=== PATIENT | male | born 1935 | race Two or more races ===

== ENCOUNTER 2016-09-03 10:05 | Inpatient (IN) | payer MEDICARE, OTHER ==
[2016-09-03] VITALS (8 sets, daily range): BP systolic 91–107; BP diastolic 50–69; PULSE 87–105; RESP 15–18; O2SAT 87–97
[~2016-09-03] VITALS: Ht 172.7 cm; Wt 76.9 kg
[~2016-09-03 10:05] MED LIST: APIX5TAB PO; ASPI81TA40 PO; DEXL60CA3 PO; FINA5TAB9 PO; FUR20 PO; GLIM4TAB PO; HYDR500C2 PO; METO25TA3 PO; MULT1CAP33 PO; TAM4 PO; [UNRECOGNIZED DRUG - CODE] PO; [UNRECOGNIZED DRUG - SUPPLY]
--- NOTE | 2016-09-03 11:10 | ED.REPORT ---
HPI-General Illness Date of Service Sep 03, 2016 ED Provider: Jovanny Tan MD 80 year old male with a history of polycythemia, thrombocytopenia, CHF, atrial fibrillation, COPD, diabetes, and HTN presents to the ER via EMS complaining of bilateral lower extremity swelling, worsening today. He states that his PCP ( Dr. Valentine) referred him to the ER for admission to the hospital. Associated symptoms include productive cough with yellow sputum, and chronic SOB. Patient denies fever and chills. EMS reports that patient is cared for by a home health nurse who reports low systolic blood pressure today. He is on home O2 with goal saturation 85-92% on 5L nasal cannula, and baseline systolic blood pressure in the 90's. Nursing Notes Stated Complaint: SOB Chief Complaint: General Complaint Nursing Notes Reviewed: Yes Allergies: Coded Allergies: latex (Verified Allergy, Intermediate, 09/03/16) Barbiturates (Verified Allergy, Mild, 09/03/16) Sulfa (Sulfonamide Antibiotics) (Verified Allergy, Mild, 09/03/16) amiodarone (Unverified Allergy, Unknown, 09/03/16) amoxicillin (Unverified Allergy, Unknown, 09/03/16) iodine (Unverified Allergy, Unknown, 09/03/16) Scheduled Anagrelide (Anagrelide) 0.5 Mg Capsule 0.5 MG PO DAILY Apixaban (Eliquis) 5 Mg Tablet 5 MG PO DAILY Dexlansoprazole ER (Dexilant) 60 Mg Capsule 60 MG PO QAM Digoxin (Digitek) 125 Mcg Tablet 62.5 MCG PO DAILY Finasteride (Finasteride) 5 Mg Tablet 5 MG PO DAILY Furosemide (Furosemide) 20 Mg Tab 20 MG PO BIDBL Glimepiride (Glimepiride) 4 Mg Tablet 4 MG PO BID Metoprolol Succinate ER (Toprol XL) 25 Mg Tablet 12.5 MG PO DAILY Tamsulosin ER (Tamsulosin ER) 0.4 Mg Cap.er.24h 0.4 MG PO HS Scheduled PRN Aspirin (Aspirin) 81 Mg Tablet 81 MG PO TID PRN PRN For Pain Beclomethasone Dipropionate (Qnasl) 8.7 Gm Hfa.aer.ad 2 SPR NASAL DAILY PRN PRN allergies General Time Seen by MD: 10:53 Chief Complaint Other (Bilateral Lower Extremity Swelling) Hx Obtained From: Patient Arrived By: Ambulance Sudden in Onset?: No Onset Occurred: Just prior to arrival Symptom Duration: Since onset Associated with: Reports: Cough, Shortness of breath, Denies: Chest pain, Fever Pertinent Negative: Pt denies other symptoms Context Related History: Reports COPD, Reports Diabetes mellitus Recent Healthcare: Recent doctor visit Similar Sx Previous: Yes Past Medical History Past Medical History Thrombocytopenia Reports: COPD, Cancer (Polycythemia), Congestive heart failure, Diabetes mellitus, Hypertension Reports: Atrial fibrillation, GI bleed Past Surgical History Hernia repair Reports: Cataract surgery (bilateral) Smoking History Unknown if Ever Smoker Social History Alcohol Use: "Social" (occasional) Other Social History: Good social support Review of Systems Full Review of Systems Constitutional: Denies: Chills, Fever Respiratory: Reports: Prod cough, yellow, Shortness of breath Cardiovascular: Denies: Chest pain GI: Denies: Abdominal pain, Diarrhea, Nausea, Vomiting Musculoskeletal: Reports: Extremity pain, Extremity swelling (Lower, bilateral) Complete sys rev & neg: except as marked. Physical Exam Vital Signs Vital Signs Date Time Temp Pulse Resp B/P Pulse Ox O2 Delivery O2 Flow Rate FiO2 09/03/16 13:44 101 15 97/55 89 Nasal Cannula 5 09/03/16 13:41 101 15 97/55 89 Nasal Cannula 5 09/03/16 12:11 99 15 91 Nasal Cannula 5 09/03/16 10:53 36.7 102 15 107/55 90 Nasal Cannula 5 Initial VS: Reviewed Head / Eyes: Atraumatic, Normocephalic Neck: Supple, Non-tender, Full range of motion Abdomen / GI: Soft, Non-tender, No guarding, No rebound, No distention Skin: Warm, Dry, No cyanosis Neurologic: Alert, Oriented, Nonfocal Psychiatric: Mood/affect normal, Behavior normal, Normal thought content General/Constitutional: Awake, Alert, Well developed, Well nourished Respiratory / Chest: No chest tenderness, No chest wall deformity Bibasilar crackles. Cardiovascular: Heart rate NL, Regular rhythm, Heart sounds NL, Cap refill not delayed, Peripheral circulation NL Lower Ext Edema: Positive: Bilateral 2+, Pitting Upper Extremities Upper Extremity / MS: Inspection NL, No swelling, Non-tender, No erythema, No deformity, Neurologic intact, Vascular intact, No clubbing/cyanosis Interpretation & Diagnostics Lab Results Interpretation Result Diagram: 09/03/16 1140 09/03/16 1140 Test 09/03/16 11:40 09/03/16 12:34 White Blood Count 13.1th/mm3 (3.8-10.1) Red Blood Count 4.91mil/mm3 (4.40-5.80) Hemoglobin 10.7g/dL (13.8-17.2) Hematocrit 36.4% (41.0-50.0) Mean Corpuscular Volume 74.1fL (81-100) Mean Corpuscular Hemoglobin 21.8pg (27.0-35.0) Mean Corpuscular Hemoglobin Concent 29.4% (32.0-37.0) Red Cell Distribution Width 22.8% (12.3-15.4) Platelet Count 594bil/L (150-400) Neutrophils (%) (Auto) 66.6% (40-74) Lymphocytes (%) (Auto) 14.4% (14-46) Monocytes (%) (Auto) 9.8% (4-12) Eosinophils (%) (Auto) 8.1% (0-5) Basophils (%) (Auto) 0.8% (0-3) Prothrombin Time 16.0sec (8.1-12.5) Prothromb Time International Ratio 1.48ratio Sodium Level 139mEq/L (134-144) Potassium Level 3.8mEq/L (3.5-5.2) Chloride Level 102mEq/L (97-108) Carbon Dioxide Level 22mmol/L (18-29) Blood Urea Nitrogen 30mg/dL (8-27) Creatinine 1.10mg/dL (0.76-1.27) Estimat Glomerular Filtration Rate 68mL/min (>59) Glucose Level 112mg/dL (60-99) Calcium Level 9.0mg/dL (8.5-10.1) Magnesium Level 2.0mg/dL (1.6-2.6) Total Bilirubin 2.0mg/dL (0.0-1.2) Aspartate Amino Transf (AST/SGOT) 23U/L (0-50) Alanine Aminotransferase (ALT/SGPT) 15U/L (0-44) Alkaline Phosphatase 82U/L (25-160) Troponin T 0.010ug/L (0.0-0.011) Pro-B-Type Natriuretic Peptide 5987pg/mL (0-486) Total Protein 6.9g/dL (6.4-8.4) Albumin 3.5g/dL (3.4-5.0) Urine Color Straw (YELLOW) Urine Appearance Hazy (CLEAR,HAZY) Urine pH 5.5 (5.0-8.0) Urine Specific [place] 1.020 (1.003-1.035) Urine Protein Tracemg/dL (NEG,TRACE) Urine Glucose (UA) Negativemg/dL (NEGATIVE) Urine Ketones Negativemg/dL (NEGATIVE) Urine Occult Blood Moderate (NEGATIVE) Urine Nitrite Negative (NEGATIVE) Urine Bilirubin Negative (NEGATIVE) Urine Urobilinogen Normalmg/dL (NORMAL) Urine Leukocyte Esterase Large (NEGATIVE) Urine RBC 0-2/hpf (0-2) Urine WBC >50/hpf (0-5) Urine Epithelial Cells Occasional/hpf (NONE-MOD) Urine Crystals None seen (NONE SEEN) Urine Bacteria Moderate/hpf (NONE-FEW) Urine Hyaline Casts Occasional/lpf (NONE) Urine Granular Casts None seen (NONE SEEN) Urine Waxy Casts None seen (NONE SEEN) Urine Red Blood Cell Casts None seen (NONE SEEN) Urine White Blood Cell Casts None seen (NONE SEEN) Urine Mucus None seen (None Seen) Urine Trichomonas None seen (NONE SEEN) Urine Yeast Moderate (NONE SEEN) Urinalysis Comment None Urine Culture Reflexed Indicated ECG Interpretation ECG Interpretation: Atrial fibrillation, rate [address] T changes Time: 12:58 Interpreted by: ED physician X-Ray Chest Interpretation Chest Xray Interpretation: IMPRESSION: Interstitial prominence suspicious for chronic interstitial lung disease, atypical pneumonia or pulmonary edema. 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 He has been attempting to be diuresed as an outpatient reportedly with lasix 5mg po bid (though patient poor historian and unable to verify) and has had persistently borderline blood pressures which he has had for a long period time. His primary doctor did not feel comfortable diuresing him further as an outpatient. He has worsening lower extremity edema. He is on 5 L oxygen which is his baseline. He has 2+ bilateral lower extremity pitting edema. His BNP is significantly elevated. Discussed with hospitalist and we will admit for IV diuresis on telemetry. Source of Hx: Old records Time of Eval: 12:20 Re-Evaluation/Progress Note: Discussed plan to discharge pending lab results. Patient is amenable to the plan. Time of Eval: 13:13 Re-Evaluation/Progress Note: Discussed lab results and plan to admit. Patient is amenable to the plan. All other questions addressed. Consultation : Referral / Consult Name: Asif Arroyo Consulted With: Hospitalist Call Returned at: 13:17 Director Of Nurses Registry: Agrees with eval, Agrees with plan, Accepts admit Counseled Regarding: Diagnosis, Lab results, Need for admission Discharge & Departure Primary Impression: CHF exacerbation Disposition: ADMITTED TO HOSPITAL Discharge Condition All VS Reviewed: Yes Condition: Stable Referrals: Wenceslao Valentine MD (PCP) Aleksey Attestation Portions of this note were transcribed by Geovany Cooper. I, Dr. Tan, personally performed the history, physical exam and medical decision-making; I reviewed and confirmed the accuracy of the information in the transcribed note. Signed by: Aleksey Siddiqui, 09/03/2016 and 13:31 copies to: Wenceslao Valentine MD, Ben M MD Sep 03, 2016 11:10 GEOVANY COOPER Sep 03, 2016 11:59
[2016-09-03 11:49] LABS: BASOPHILS % (AUTO) 0.8 % (0-3); EOSINOPHILS % (AUTO) 8.1 % (0-5); MONOCYTES % (AUTO) 9.8 % (4-12); Mean Corpuscular Hemoglobin 21.8 pg (27.0-35.0); Mean Corpuscular Volume 74.1 fL (81-100); NEUTROPHILS % (AUTO) 66.6 % (40-74); Platelet Count 594 bil/L (150-400)
--- NOTE | 2016-09-03 12:00 | NUR ---
In OR Took over care @ 1130 AM. Pt is in OR for Sx at this time. Report received. Addendum: 09/03/16 at 1734 by RISA WRIGHT RN Wrong pt!
[2016-09-03 12:10] LABS: INR 1.48 ratio
[2016-09-03 12:46] LABS: APPEARANCE,URINE HAZY (CLEAR,HAZY); COLOR,URINE STRAW (YELLOW); OCCULT BLOOD,URINE MODERATE (NEGATIVE); PH,URINE 5.5 (5.0-8.0); UROBILINOGEN,URINE NORMAL (NORMAL)
[2016-09-03 12:51] LABS: YEAST,URINE MODERATE (NONE SEEN)
[2016-09-03] MEDS ORDERED: Furosemide 10 mg/mL 4 mL Inj IVPUSH ONE (13:15)
--- NOTE | 2016-09-03 13:22 | DRSVH ---
PROCEDURE: X-RAY CHEST ONE VIEW, PORTABLE ([id number]) INDICATIONS: dyspnea TECHNIQUE: One view of the chest was acquired. COMPARISON: [facility], CR, CHEST 2VW, 10/16/2011, 15:16. [facility], CR, EST 2VW, 04/26/2013, 16:02. FINDINGS: Surgical changes and devices: None. Lungs and pleura: No pleural effusions or pneumothorax. Interstitial prominence is noted which is no nspecific, but could be related to chronic interstitial lung disease, atypical pneumonia or pulmonary edema. Mediastinum: Mediastinal contours appear normal. Heart size is normal. Bones and chest wall: No suspicious bony lesions. Overlying soft tissues appear unremarkable. IMPRESSION: Interstitial prominence suspicious for chronic interstitial lung disease, atypical pneumo tc or pulmonary edema. Dictated by: Swetha Stein MD, PhD on 09/03/2016 at 13:19 Approved by: Swetha Stein MD, PhD on 09/03/2016 at 13:21
[2016-09-03] MEDS ORDERED: Alum-Mag Hydrox-Simeth 30 mL Suspension PO PRN (13:35)
[2016-09-03] MEDS ORDERED: Ondansetron 2 mg/mL 2 mL Inj IVPUSH PRN (13:35)
[2016-09-03] MEDS ORDERED: ANAG0.5C2 PO (13:51)
[2016-09-03] MEDS ORDERED: TAMS0.4C29 PO (13:51)
[2016-09-03] MEDS ORDERED: DEXL60CA5 PO (13:51)
[2016-09-03] MEDS ORDERED: BECL8.7H NASAL (13:51)
[2016-09-03] MEDS ORDERED: GLIM4TAB2 PO (13:51)
[2016-09-03] MEDS ORDERED: ASPI-973 PO (13:51)
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
--- NOTE | 2016-09-03 15:00 | NUR ---
Admit Pt admitted from ER r/t CHF exacerbation, SOB, and Bilat LE Edema increasing. Pt comes via gurney but ambulates independently with steady gait to bed. 5L NC is baseline for pt at home with goal of SPO2 to be 85-92%. Using urinal at bedside. Tele placed on pt. A&OX4 word searches at times. at bedside. Bilateral LE edema pitting with reddened sores on lower legs. PU on both buttock areas small. Per pt these were from sitting in his chair for weeks at a time previously. PU Protocol initiated. Lungs throughout crackles and some light wheezing. Allergy hydroelectric production manager name band. Call light in reach, bed in low. Care continues
[2016-09-03] MEDS ORDERED: Fluticasone 0.05% 15 Spray/2 Gm 16 Gm Nasal Spray NASAL PRN (15:40)
[2016-09-03 16:34] LABS: INR 1.42 ratio
[2016-09-03] MEDS: MeTOProlol XL 25 mg ER24 Tablet PO SCH (16:39)
[2016-09-03] MEDS: Pantoprazole 40 mg ER24 Tablet PO SCH (16:39)
[2016-09-03] MEDS: Sodium Chloride LOK Flush 10 mL Syringe IVFLUSH SCH (16:42)
--- NOTE | 2016-09-03 18:58 | DRSVH ---
PROCEDURE: US VENOUS LEG DUPLEX BILATERAL INDICATIONS: 80 year-old male with shortness of breath and leg swelling. TECHNIQUE: Real-time imaging, as well as color and pulse Doppler interrogation, were performed of the deep veins of both legs from the inguinal ligament to the popliteal fossa. COMPARISON: None. FINDINGS: The deep veins are normally compressible, and free of intraluminal thrombus. Color and pu lse Doppler demonstrate normal phasic intravascular flow. There is normal augmentation response to d istal compression maneuver. There is significant bilateral lower leg subcutaneous edema. IMPRESSION: No sonographic evidence for lower extremity deep venous thrombosis. Dictated by: Diego Malone M.D. on 09/03/2016 at 18:56 Approved by: Diego Malone M.D. on 09/03/2016 at 18:57
[2016-09-04] VITALS (7 sets, daily range): BP systolic 91–110; BP diastolic 50–71; PULSE 71–105; RESP 18–22; O2SAT 86–95
[2016-09-04] MEDS: Sodium Chloride LOK Flush 10 mL Syringe IVFLUSH SCH ×3 (00:18→16:57)
[2016-09-04] MEDS ORDERED: diphenhydrAMINE 25 mg Capsule PO ONE ×2 (00:30→05:25)
--- NOTE | 2016-09-04 01:42 | NUR ---
Insomnia Pt requested sleep aid for insomnia. Benedryl prescribed with good results, will continue to monitor.
[2016-09-04] MEDS: Pantoprazole 40 mg ER24 Tablet PO SCH (06:18)
[2016-09-04 06:40] LABS: BASOPHILS % (AUTO) 1.1 % (0-3); EOSINOPHILS % (AUTO) 8.2 % (0-5); MONOCYTES % (AUTO) 10.8 % (4-12); Mean Corpuscular Hemoglobin 22.4 pg (27.0-35.0); Mean Corpuscular Volume 73.7 fL (81-100); NEUTROPHILS % (AUTO) 62.9 % (40-74); Platelet Count 576 bil/L (150-400)
[2016-09-04] MEDS: MeTOProlol XL 25 mg ER24 Tablet PO SCH (07:58)
[2016-09-04] MEDS: ANAGRELIDE 0.5 MG PO SCH (08:02)
[2016-09-04] MEDS ORDERED: Furosemide 10 mg/mL 4 mL Inj IVPUSH ONE (10:15)
--- NOTE | 2016-09-04 10:19 | PCM.PNMED ---
Subjective Date of Service Sep 04, 2016 Subjective Had some difficulties sleeping last night, but was able to finally sleep with Benadryl. This morning he was seen in his room. He denied any current CP and reports that his SOB has improved. He is still urinating frequently. Exam Vital Signs Vital Sign - Last Date Time Temp Pulse Resp B/P Pulse Ox O2 Delivery O2 Flow Rate FiO2 09/04/16 08:08 Supplement Oxygen 09/04/16 05:21 36.6 92 18 95/64 94 4.00 110/67 108/71 Intake and Output 09/03/16 09/03/16 09/04/16 Cumulative From/Thru 15:00 23:00 07:00 09/03/16 10:53 - 09/04/16 06:41 Intake Total 400 ml 400 ml Output Total 400 ml 500 ml 900 ml Balance -400 ml -100 ml -500 ml Intake Oral 400 ml 400 ml Output Urine Total 400 ml 500 ml 900 ml # Voids 2 2 Exam Gen.: Well-developed elderly male who appears in mild respiratory distress, cooperative and answers questions appropriately CV: Irregularly irregular with soft systolic murmur, peripheral pulses intact Respiratory: Coarse breath sounds, mild bibasilar rales, no wheezing or rhonchi noted, mild respiratory distress while on 4 L NC. Abdomen: Soft, nontender, nondistended, mildly obese, normoactive bowel sounds MSK: Muscle strength grossly intact and equal, no joint erythema or swelling. Extremities: 1-2+ bilateral firm pitting edema up to both knees, there is chronic venous stasis changes, decreased DP and PT pulses bilaterally :No nguyen catheter Neuro: Alert and oriented 3, slow but normal gait Psych: Appropriate mood and affect IVs and Medications Medications Reviewed: Medications were reviewed in detail Lab and Diagnostics Result Diagram: 09/04/1661409/04/16614 X-Rays, CTs and MRIs cxr portable IMPRESSION: Interstitial prominence suspicious for chronic interstitial lung disease, atypical pneumonia or pulmonary edema. 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 Patient will be admitted for gentle diuresis and evaluation of his bilateral feet pain and swelling and SOB. #Pulmonary fibrosis on home oxygen, POA Patient was reported to have been more short of breath today and was saturating in the mid 80s. He is now saturating in the low 90s on 5 Liters, which is his baseline. Lung exam fairly benign today. Will continue to keep saturations between 88-92% on oxygen. Will continue home Qvar inhaler #Possible Acute exacerbation of Congestive Heart Failure, POA Patients increase swelling and SOB may be due to inadequate diuresis or from inadequate output since removal of his indwelling nguyen catheter. Although its possible that his foot pain may be a separate issue and is due to vascular insufficiency. He did receive 40mg of IV Lasix in the ED. Will continue to monitor I/Os closely and daily weights. With the leg swelling and pain, will get Doppler U/S to r/o DVTs, although presentation makes it less likely. Will re-evaluate patient's edema and symptoms tomorrow morning before continuing diuresis. He is on 20mg of PO Lasix BID at home. He is also on Digoxin, but reports he has only been taking half of his usual dosage, because that is all he can handle. Will check a Digoxin level. Will obtain an Echo for evaluation of heart health PT/OT for discharge recs Digoxin level low, will encourage patient to take the full dosage and not half dose. Also will encourage Compression stockings #Possible UTI, POA UA positive for Leuks, WBC, and blood. Could be a dirty catch, patient asymptomatic except frequency, will await cultures or symptoms. #Chronic atrial fibrillation, POA Patient is currently on Eliquis, will continue Rate well controlled. #NIDDM2, POA Held home Glimepiride, will initiate low dose Correctional Scale #Chronic Hypotension, POA Patient reports his baseline systolic is in the 90s. Uncertain of reason, but he reports it runs in his family. Mildly orthostatic from supine to sitting only #Chronic BPH, POA Will cautiously continue his home Finasteride and Flomax since they are fairly low doses If worsening Hypotension, consider stopping these medications if patient is able to urinate without difficulties #Polycythemia vera, POA Will continue his Agrylin Tylenol prn pain Zofran prn nausea Bowel regimen prn constipation Dispo: Likely discharge tomorrow if medically stable and diuresing well. Pain Evaluation: Adequate Pain Control VTE Prophylaxis: COLLETTE Flores, Other (Eliquis) VTE Mechanical Devices: Intermittant Pneumatic CD Resuscitation Status: CPR: Attempt Resuscitation Attending Statement The patient was seen and examined together with Resident / House-staff on and I agree with the history, exam and plan as outlined in the note above. Felipe Duran DO Sep 04, 2016 09:49 Asif Arroyo Sep 05, 2016 17:05
--- NOTE | 2016-09-04 11:30 | NUR ---
Pressure ulcer protocol received, pt seen at bedside. 80 yo male presents with a small stage 2 pressure injury at his right buttock (POA). Measures 0.5 cm x 0.5 cm x 0.2 cm, no dressing noted, no drainage noted on bedsheets. Recommend calmoseptine application daily, encourage nutrition.
--- NOTE | 2016-09-04 13:30 | DRSVH ---
[facility] [address] [place] [address] Echocardiogram Report Name: JASMIN KRISHNAN BStudy Date: 09/04/2016 Height: 6 8 in Hospital Exam Location: [facility] Weight: 1 69 lb Gender: Male BSA: 1.9 m2 : 1935 Age: 80 yrs BP: 108/7 1 mmHg Reason For Study: HEART FAILURE Ordering Physician: [facility]PITALIST [facility] Performed By: Brenna Benitez Referring Physician: Dr. Wenceslao Valentine Interpretation Summary The left ventricle is normal in size. Left ventricular systolic function is mildly reduced. The ejection fraction is estimated to be 45-50%. LVEF has not changed significantly since prior study. Flattened septum is consistent with RV pressure/volume overload. The right ventricle is severely dilated which has increased markedly since prior study. There is no mass or thrombus in the right ventricle. Right ventricular systolic function is moderate to severely reduced. Right ventricular systolic function has decreased markedly since previous exam. The right ventricular systolic pressure is estimated at 80 mmHg assuming a right atrial pressure of 15 mm Hg. Compared to the prior echo exam, there has been a significant increase in the severity of pulmonary hypertension. The left atrium is mildly dilated. The right atrium is severely dilated. There is moderate mitral regurgitation. There is moderate to severe tricuspid regurgitation. Both TR and MR have increased in severity. There is a moderate left-sided pleural effusion. Procedure: A two-dimensional transthoracic echocardiogram with color flow and Doppler was performed. The study quality was technically adequate. Comparison is made with the echocardiogram of 02/10/2015. The patient was in atrial fibrillation with heart rates between 77-113 bpm during the exam. Left Ventricle: The left ventricle is normal in size. Left ventricular wall thickness is normal. Left ventricular systolic function is mildly reduced. The ejection fraction is estimated to be 45-50%. Flattened septum is consistent with RV pressure/volume overload. There is borderline global hypokinesis of the left ventricle. Diastolic function could not be accurately assessed due to atrial fibrillation. Right Ventricle: The right ventricle is severely dilated. There is no mass or thrombus in the right ventricle. Right ventricular systolic function is moderate to severely reduced. Right ventricular systolic function has decreased since previous exam. Atria: The left atrium is mildly dilated. The right atrium is severely dilated. There is no Doppler evidence for an interatrial shunt. Mitral Valve: There is a flat closure plane of the the mitral valve leaflets. The mitral valve is normal in structure and function. There is moderate mitral regurgitation. Aortic Valve: The aortic valve is trileaflet. The aortic valve opens well. There is trace aortic regurgitation. Tricuspid Valve: The tricuspid valve leaflets are thin and pliable. The tricuspid annulus is dilated. There is moderate to severe tricuspid regurgitation. The right ventricular systolic pressure is estimated at 80 mmHg assuming a right atrial pressure of 15 mm Hg. Compared to the prior echo exam, there has been an increase in the severity of pulmonary hypertension. Systolic flow reversal noted in hepatic veins. Pulmonic Valve: The pulmonic valve leaflets are thin and pliable; valve motion is normal. There is mild pulmonic regurgitation. Great Vessels: The aortic root is normal size. The ascending aorta is at the upper limits of normal in size. The pulmonary artery is normal size. The IVC is dilated (diameter is greater than 2.1 cm) and it collapses less than 50% with a sniff. This suggests a high right atrial pressure of 15 mm Hg. Pericardium/ Pleura There is no pericardial effusion. There is a moderate left-sided pleural effusion. MMode/2D Measurements & Calculations LVIDd: 4.6 cm RA long axis LVOT diam LVIDs: 2.7 cm LA A2 area: 21.7 cm FS: 41.3 % LA A4 area: 24.1 cm RA area Ao root diam EPSS: 0.32 cm LA length (vol): 6.0 cm IVSd: 0.80 cm LA vol: 73.4 ml : 29.8 cm Aortic Jxn LVPWd: 0.97 cm LA vol index RA vol : 110.ml asc Aorta RA Diam: 3.4 cm IVC diam: 2.5 cm : 57.8 mm2 LV stallings. diameter/BSA LV sys. diameter/BSA RVD1 (basal) TAPSE: 0.70 cm (cm/m^2): 2.4 (cm/m^2): 1.4 Doppler Measurements & Calculations Ao V2 max: 90.0 cm/sec MV E max mingo Med Peak E' Mingo TR max mingo Ao max P.2 mmHg : 75.2 cm/sec : 400.4 cm/sec Ao mean P.9 mmHg E/E' med: 8.8 TR max PG LVOT Max Mingo Lat Peak E' Mingo : 64.5 mmHg : 48.9 cm/sec PA V2 max PRIYA(I,D): 1.8 cm E/E' lat: 4.8 : 70.4 cm/sec sev ratio: 0.52 E/e' average: 6.8 PA mean PG : 0.90 mmHg PA Accel Time : 0.06 sec MV dec time: 0.12 sec Ao V2 mean LV V1 max PG PA V2 mean : 66.1 cm/sec : 44.3 cm/sec Ao V2 VTI LV V1 VTI: 7.7 cm PRIYA(V,D): 1.9 cm2 PRIYA indexed to BSA (cm^2/m^2): 0.96 Reading Physician:PM
--- NOTE | 2016-09-04 15:51 | NUR ---
Social Work-initial assessment/readiness for discharge: Data:See initial assessment. Pt is a 80 y/o male who was admitted on 09/03/16 for CHF exacerbation per H&P. Pt's insurance is [employer] and PCP is Wenceslao Valentine MD. EMR Reviewed. Pt's readmission score is 3-high risk. SW met with pt at bedside to discuss discharge planning, SW role explained. Pt is alert and oriented x3. Pt resides at home with his where he remains independent with ADLS. Pt does not drive and does uses a fww at baseline. Pt is currently open with [facility] and has been to [facility] in the past. Pt has no director long term care care insurance or VA benefits. Pt states he has not completed DPOA/ advanced directive paperwork, SW provided him with the paperwork. Pt plans to return home with resume HH services. SW spoke with John Malcolm at [facility] and provided him with access. Pt anticipates his to provide transport home at discharge. SW provided phone number and plan on white board in room. SW will continue to follow. Assessment:Pt who would benefit from resume HH. Plan:Pt to discharge home when medically stable via POV. Resume HH orders will be needed through [facility] for RN and PT. JOLANTA will continue to follow. JOSE ROBERTO Benitez Addendum: 09/04/16 at 1606 by CHANTELL TREVINO SS Amended: Links added.
[2016-09-04] MEDS ORDERED: Heparin 5,000 Unit/mL Inj IVPUSH ONE (15:55)
[2016-09-04] MEDS ORDERED: Heparin 25K Unit/500mL 0.45 NS 25,000 UNIT in IV Premix 1 EACH IV SCH (15:55)
[2016-09-04] MEDS ORDERED: Heparin 5,000 Unit/mL Inj IVPUSH PRN (15:55)
[2016-09-04] MEDS ORDERED: diphenhydrAMINE 50 mg Capsule PO ONE (16:00)
--- NOTE | 2016-09-04 16:55 | NUR ---
NUTRITION ASSESSMENT: ASSESS: 80 YO male admitted for shortness of breath and CHF exacerbation. Pt eating 100% x 1 meal reported. PMHx: Polycythemic, erythromelalgia, CHF, a-fib on Eliquis, COPD, Pulmonary fibrosis, DM type 2, orthostatic hypotension, BPH, CAD s/p stent. LABS: Reviewed. BUN 30, A1C 7.0, Alb 3.4, PAB 13 MEDS: Reviewed. GI: No BM reported. SKIN: Stage II on R buttock. CURRENT WT: 76.9 kg. DIET: Heart Healthy, Diabetic. PO 100% x 1 meal reported. EST. NEEDS (WOUNDS): 0317-0604 kcals (30-35 kcals/kg BW), 95-115 g protein (1.2-1.5 g/kg BW) NUTRITION DIAGNOSIS: 1.) Increased nutrient needs related to increased demand for nutrients for wound healing as evidenced by stage II pressure ulcer on buttock. NUTRITION INTERVENTION: 1.) Will add glucerna at lunch and dinner tray to help meet increased needs for wound healing. MONITOR / EVAL: PO intake, labs, wounds, nutritional status. Follow per moderate nutritional risk guidelines.
--- NOTE | 2016-09-04 17:31 | NUR ---
Heparin drip: Heparin drip was started 1700 at 28ml hr/1400u per cardiac protocol. Also 6150u IV bolus was given per MD order at Start of heparin drip. Patients next PTT draw will be at 2300.
--- NOTE | 2016-09-04 17:34 | NUR ---
Urine: Post residual bladder scan today was done and showed 114ml in patients bladder after he urinated.
[2016-09-04] MEDS: predniSONE 20 mg Tablet PO SCH (19:03)
[2016-09-04] MEDS: diphenhydrAMINE 25 mg Capsule PO PRN (20:47)
[2016-09-05] MEDS: Sodium Chloride LOK Flush 10 mL Syringe IVFLUSH SCH ×3 (00:04→17:37)
--- NOTE | 2016-09-05 00:21 | NUR ---
Pt activity Received report from Harmeet Finch at 2330, assumed care of pt.
[2016-09-05] MEDS: predniSONE 20 mg Tablet PO SCH ×2 (01:40→07:04)
--- NOTE | 2016-09-05 05:14 | NUR ---
PTT Pt's PTT lab was drawn at 0030, lab value back 2 hrs later. Spoke with Dr and with new PTT at 46.6, started heparin at 14units/kg/hr. Will continue to monitor, next PTT draw at 0630.
[2016-09-05 05:19] VITALS: BP 113/67; PULSE 97; RESP 20; O2SAT 93
[2016-09-05] MEDS: Pantoprazole 40 mg ER24 Tablet PO SCH (06:02)
[2016-09-05 06:58] LABS: BASOPHILS % (AUTO) 0.2 % (0-3); EOSINOPHILS % (AUTO) 0.1 % (0-5); MONOCYTES % (AUTO) 1.1 % (4-12); Mean Corpuscular Hemoglobin 22.2 pg (27.0-35.0); Mean Corpuscular Volume 72.9 fL (81-100); Platelet Count 591 bil/L (150-400)
[2016-09-05] MEDS: diphenhydrAMINE 25 mg Capsule PO PRN (07:04)
[2016-09-05] MEDS ORDERED: diphenhydrAMINE 25 mg Capsule PO ONE (07:40)
--- NOTE | 2016-09-05 08:04 | DRSVH ---
PROCEDURE: X-RAY CHEST, TWO VIEWS ([id number]) INDICATIONS: ?PE TECHNIQUE: 2 views of the chest were acquired. COMPARISON: [facility], CR, XR CHEST 1VW (PORTABLE), 09/03/2016, 12:24. [facility], CR, CHEST 2VW, 04/26/2013, 16:02. FINDINGS: Surgical changes and devices: None. Lungs and pleura: No pleural effusions or pneumothorax. Interstitial prominence is noted which is no nspecific, but could be related to chronic interstitial lung disease, atypical pneumonia or pulmonary edema. Mediastinum: Mediastinal contours appear normal. Heart size is normal. Bones and chest wall: No suspicious bony lesions. Overlying soft tissues appear unremarkable. IMPRESSION: Interstitial opacities redemonstrated at suspicious for chronic interstitial lung disease , although atypical pneumonia and/or pulmonary edema cannot be excluded. Correlate clinically. Dictated by: Dwayne LUCERO Interpreted: Anna Ray MD on 09/05/2016 at 8:03 Transcribed by: BLAKE on 09/05/2016 at 8:04 Approved by: Anna Ray M.D. on 09/05/2016 at 21:18
--- NOTE | 2016-09-05 09:53 | DRSVH ---
PROCEDURE: CT ANGIO CHEST PULMONARY EMBOLISM ([id number]) INDICATIONS: RV strain on ECHO TECHNIQUE: After the administration of intravenous contrast, 2 mm thick sections acquired from the pulmonary api duncan to the posterior costophrenic angles. 3-dimensional maximum intensity projection (MIP) coronal a nd sagittal reformats were then acquired through the thorax. For radiation dose reduction, the follo wing was used: automated exposure control, adjustment of mA and/or kV according to patient size. COMPARISON: [facility], CT, CHEST HI-RESOLUTION W/O CONT, 05/19/2013, 11:41. FINDINGS: Image quality: Excellent. Pulmonary arteries: Pulmonary arteries are normal in size, and demonstrate no intraluminal filling d efects to suggest central pulmonary embolism. Lungs and pleura: There are nodular opacities in the bases bilaterally, right greater than left. Th e largest measures 14 mm on the right. These are new compared to prior exam dated 05/19/13. Minimal to mild right greater than left pleural effusions. There is an overall appearance of increased pulmo nary vascularity. No pneumothorax. Central and peripheral airways are patent. Mediastinum: There is no pericardial effusion. There is a mild appearance of septal flattening. There is enlargement of the right atrium. The right ventricle is also enlarged. There are multiple enlarge d hilar and mediastinal lymph nodes. The largest mediastinal lymph node is in the supra-carinal regio n measuring 21 mm. There is a right hilar lymph node measuring 19 mm. Thoracic aorta is normal in lesly iber and enhancement. Esophagus is normal in caliber, without hiatal hernia. Bones and chest wall: No suspicious bony lesions. Ribs and thoracic spine appear intact throughout. Thyroid gland demonstrates low-attenuation foci bilaterally, the largest on the left measuring 6 mm .. No axillary or supraclavicular adenopathy. Abdomen: Visualized upper abdominal solid organs appear normal in the early arterial phase of enhanc ement. IMPRESSION: 1. Minimal to mild bilateral pleural effusions with increased pulmonary vascularity suggestive of albert ma. 2. Focal nodular opacities within the bases bilaterally as above. These could be in store marketing representative of fo lesly areas of edema or nonspecific nodules. Recommend interval followup as below. 3. No evidence of pulmonary embolism. 4. Mild appearance of septal thickening with enlargement of the right atrium and right ventricle. Thi s can be indicative of right heart strain. Fleischner Society criteria for SOLID lung nodule followup. Nodule size (mm)Low-risk patientHigh-risk patient<6 (single or multiple)No routine followup.Optional CT at 12 months. 6-8 (single or multiple)CT at 6-12 months, then optional CT at 18-24 mo.CT at 6-12 m onths, then CT at 18-24 months. >8 (single)CT, PET-CT, or biopsy at 3 months. Same as for low-risk p ts. >8 (multiple)CT at 3-6 months, then optional CT at 18-24 mo.CT at 3-6 months, then CT at 18-24 m onths. Recommendations do not apply to lung cancer screening, patients with immunosuppression, or patients w ith known primary cancer. Dictated by: Anna Ray M.D. on 09/05/2016 at 9:39 Approved by: Anna Ray M.D. on 09/05/2016 at 9:52
[2016-09-05] MEDS: MeTOProlol XL 25 mg ER24 Tablet PO SCH (10:01)
[2016-09-05] MEDS: ANAGRELIDE 0.5 MG PO SCH (12:16)
--- NOTE | 2016-09-05 13:19 | PCM.PNMED ---
Subjective Date of Service Sep 05, 2016 Subjective Had difficulties sleeping over night. Had a CTA performed that did not show any pulmonary emboli, but did show nodules. This morning, Chon reports that he is breathing per his baseline, and denies any CP, MARTINEZ, or fevers. He continues to complain of bilateral feet pain, for which he refuses to use his COLLETTE hose and for which he only wants ASA 81 mg for his pain. He says he has HHC and that a baby aspirin is the only thing that improves his pain. Exam Vital Signs Vital Sign - Last Date Time Temp Pulse Resp B/P Pulse Ox O2 Delivery O2 Flow Rate FiO2 09/05/16 05:19 36.3 97 20 113/67 93 Nasal Cannula 4.00 Intake and Output 09/04/16 09/04/16 09/05/16 Cumulative From/Thru 14:59 22:59 06:59 09/03/16 10:53 - 09/05/16 06:25 Intake Total 100 ml 621 ml 400 ml 1521 ml Output Total 400 ml 525 ml 300 ml 2125 ml Balance -300 ml 96 ml 100 ml -604 ml Intake Oral 100 ml 500 ml 400 ml 1400 ml IV Total 121 ml 121 ml Output Urine Total 400 ml 525 ml 300 ml 2125 ml # Voids 2 # Bowel Movements 0 0 1 1 Exam Gen.: Well-developed elderly male who appears in mild respiratory distress, CV: Irregularly irregular with soft systolic murmur, peripheral pulses intact Respiratory: Coarse breath sounds, mild bibasilar rales, no wheezing or rhonchi noted, mild respiratory distress while on 4 L NC. Abdomen: Soft, nontender, nondistended, mildly obese, normoactive bowel sounds MSK: Muscle strength grossly intact and equal, no joint erythema or swelling. Extremities: 1-2+ bilateral firm pitting edema up to both knees but improving, there are chronic venous stasis changes, decreased DP and PT pulses bilaterally , :No nguyen catheter Neuro: Alert and oriented, slow but normal gait Psych: Appropriate mood and affect IVs and Medications Medications Reviewed: Medications were reviewed in detail Lab and Diagnostics Result Diagram: 09/05/16 0630 09/05/16 0630 X-Rays, CTs and MRIs cxr portable IMPRESSION: Interstitial prominence suspicious for chronic interstitial lung disease, atypical pneumonia or pulmonary edema. 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 Patient will be admitted for gentle diuresis and evaluation of his bilateral feet pain and swelling and SOB. #Pulmonary fibrosis on home oxygen, POA Patient was reported to have been more short of breath today and was saturating in the mid 80s. He is now saturating in the low 90s on 5 Liters, which is his baseline. Lung exam fairly benign today. Will continue to keep saturations between 88-92% on oxygen. Will continue home Qvar inhaler His breathing has been about baseline now. #Acute exacerbation of Congestive Heart Failure, POA Patients increase swelling and SOB may be due to inadequate diuresis or from inadequate output since removal of his indwelling nguyen catheter. Although its possible that his foot pain may be a separate issue and is due to vascular insufficiency. He did receive 40mg of IV Lasix in the ED, which we continued for a couple more days. We also resumed his home PO Lasix. Will continue to monitor I/Os closely and daily weights. Doppler U/S of legs -neg for DVTs. He is also on Digoxin, but reports he has only been taking half of his usual dosage, because that is all he can handle. Digoxin level was low as expected. PT/OT for discharge recs Digoxin level low, will encourage patient to take the full dosage and not half dose. Patient's Echo revealed severe RV and RA dilatation. A CTA was performed after desensitizing the patient to contrast. Results did not show any PE, but there was a large new nodule noted on imaging. Patient also refusing COLLETTE hoses for his peripheral edema due to it causing him more pain. Would rather just elevate them. #Possible CAUTI, POA UA positive for Leuks, WBC, and blood. Patient has not had any dysuria, but continues to have urgency and frequency. UA grew Enterococcus, and with his recent indwelling catheter usage, will plan to treat as such. Levaquin 750mg PO daily x 5 days (09/05) #Chronic atrial fibrillation, POA Patient is currently on Eliquis, will continue Rate well controlled. Patient has only been taking half of his Eliquis dosing and half of his Digoxin dosing. He reports he can't handle taking that many pills so he does that instead. #NIDDM2, POA Held home Glimepiride, will initiate low dose Correctional Scale #Chronic Supine Hypotension, POA Patient reports his baseline systolic is in the 90s. Uncertain of reason, but he reports it runs in his family. Mildly orthostatic from supine to sitting only Continues to be only hypotensive with supine positioning. #Chronic BPH, POA Will cautiously continue his home Finasteride and Flomax since they are fairly low doses If worsening Hypotension, consider stopping these medications if patient is able to urinate without difficulties Nursing noted about 115 ml of PVR yesterday. #Polycythemia vera, POA Will continue his Agrylin Tylenol prn pain Zofran prn nausea Bowel regimen prn constipation Dispo: Likely discharge tomorrow Pain Evaluation: Pain not Controlled VTE Prophylaxis: COLLETTE Flores, Other (Eliquis) VTE Mechanical Devices: Intermittant Pneumatic CD Resuscitation Status: CPR: Attempt Resuscitation Attending Statement The patient was seen and examined together with Resident / House-staff on and I agree with the history, exam and plan as outlined in the note above. Felipe Duran DO Sep 05, 2016 07:42 Asif Arroyo Sep 05, 2016 17:33
[2016-09-05] MEDS: levoFLOXacin 750 mg Tablet PO SCH (13:58)
[2016-09-05 14:22] VITALS: BP 86/50; PULSE 85; RESP 20; O2SAT 87
--- NOTE | 2016-09-05 17:19 | NUR ---
Telemetry refusal Pt refuses to have telemetry on despite education on why he should have it, aware
[2016-09-05 20:22] VITALS: BP 91/47; PULSE 74; RESP 20; O2SAT 86
--- NOTE | 2016-09-05 22:50 | NUR ---
Activity Pt is steady on his feet. He is frequently OOB He is able to perform self cares independently. No noted dyspnea with exertion at bedside. Will cont to monitor
[2016-09-06] MEDS: diphenhydrAMINE 25 mg Capsule PO PRN (00:11)
[2016-09-06] MEDS: Sodium Chloride LOK Flush 10 mL Syringe IVFLUSH SCH ×2 (01:07→09:02)
[2016-09-06 04:24] VITALS: BP 100/61; PULSE 68; RESP 18; O2SAT 92
[2016-09-06 08:43] VITALS: BP 104/67; PULSE 99; RESP 18; O2SAT 95
[2016-09-06] MEDS: Pantoprazole 40 mg ER24 Tablet PO SCH (08:58)
[2016-09-06] MEDS: levoFLOXacin 750 mg Tablet PO SCH (08:58)
[2016-09-06] MEDS: ANAGRELIDE 0.5 MG PO SCH (08:59)
[2016-09-06] MEDS: MeTOProlol XL 25 mg ER24 Tablet PO SCH (09:02)
[2016-09-06 10:21] LABS: BASOPHILS % (AUTO) 0.2 % (0-3)
[2016-09-06 10:28] LABS: EOSINOPHILS % (AUTO) 0.9 % (0-5); MONOCYTES % (AUTO) 10.4 % (4-12); Mean Corpuscular Hemoglobin 22.1 pg (27.0-35.0); Mean Corpuscular Volume 72.1 fL (81-100); NEUTROPHILS % (AUTO) 75.6 % (40-74); Platelet Count 692 bil/L (150-400)
[2016-09-06] MEDS ORDERED: APIX5TAB PO (11:50)
[2016-09-06] MEDS ORDERED: LEVO750T9 PO (11:50)
--- NOTE | 2016-09-06 11:57 | PCM.DIMED ---
Inge Castillo DO 09/06/16 1157: Discharge Instructions Date of Service Sep 06, 2016 Dates of Hospitalization Sep 03, 2016 at 14:00 Discharge Diagnosis Discharge Diagnosis #Pulmonary fibrosis on home oxygen, POA #Acute exacerbation of Congestive Heart Failure, POA #Possible CAUTI, POA #Chronic atrial fibrillation, POA #NIDDM2, POA #Chronic Supine Hypotension, POA #Chronic BPH, POA #Polycythemia vera, POA Medication Instructions Please take your Elquis twice daily. You were also started on antibiotic called Iggy while in the hospital for a urinary tract infection. Please continue to take it as instructed and finish all the pills. Diet Heart Healthy Activity Limited until seen by PCP, Home Health Phyical Therapy Call your provider Fever or Chills, Shortness of breath, Excessive diarrhea Patient Instructions Please follow up with your PCP as early as possible next week. Please continue to take your Lasix as prescribed. Please finish all your antibiotic pills as prescribed. Follow-up plan Please have a CBC and a BMP done before you see your PCP. Please get seen Friday. Your creatinine was a bit elevated. This is likely to the stronger IV Lasix we used in the hospital. You can go back your pill Lasix which is half the strength of the IV medication we use in the hospital. Your white count was also elevated this is probably due to the steroids that you received before your CAT scan. We however need to check again to make sure that these numbers normalize in the next few days. Follow-up Provider: Wenceslao Valentine MD Follow-up with PCP in: 1 week Aung Matamoros MD 09/06/16 1259: Discharge Instructions Attending's Statement The patient was seen and examined together with Dr. Castillo on 09/06 and I agree with the history, exam and plan as outlined in the note above. Inge Castillo DO Sep 06, 2016 11:57 Aung Matamoros MD Sep 06, 2016 12:59
--- NOTE | 2016-09-06 12:29 | NUR ---
Social Work: Discharge Data: Pt is on day 3 of hospitalization. EMR reviewed. D/C orders are in. WHEELMAN notified Ieshaconsuelo PANDA, spoke with John Malcolm. No further d/c planning needs at this time. WHEELMAN will continue to follow if needs arise. Assessment: Pt who is independent at baseline. Plan: Pt will d/c home today via POV with family and resume Iesha PANDA. No further d/c planning needs at this time. WHEELMAN will continue to follow if needs arise. JOSE ROBERTO Lima
[2016-09-06 12:33] VITALS: PULSE 82
--- NOTE | 2016-09-06 12:50 | NUR ---
DISCHARGE Patient discharged at 1245, left with niece who will drive him home. Patient denies pain shortness of breath (2L O2 to accompany), and nausea. Medications reviewed, and new Rx x2 provided, patient verbalized understanding. guest services assistant has call PCP for follow up appointment, MD office to call patient. Written educational material on CHF and Lasix provided for patient, IV catheter removed intact and home medications returned.
--- NOTE | 2016-09-07 12:48 | PCM.DC.MED ---
Discharge Summary Date of Service Sep 07, 2016 Dates of Hospitalization Date of Hospital Admission Sep 03, 2016 at 14:00 Date of Discharge: Sep 06, 2016 Providers: Admitting Physician: Asif Arroyo Primary Care Physician: Wenceslao Valentine MD Attending Physician: Asif Arroyo Diagnosis at Time of Discharge Diagnosis at Time of Discharge #Pulmonary fibrosis on home oxygen, POA #Acute exacerbation of Congestive Heart Failure, POA #Possible CAUTI, POA #Chronic atrial fibrillation, POA #NIDDM2, POA #Chronic Supine Hypotension, POA #Chronic BPH, POA #Polycythemia vera, POA Procedures XRay, CTs & MRIs X-RAY CHEST, TWO VIEWS IMPRESSION: Interstitial opacities redemonstrated at suspicious for chronic interstitial lung disease, although atypical pneumonia and/or pulmonary edema cannot be excluded. Correlate clinically. Dictated by: Dwayne Allen [facility] Interpreted: Anna Ray MD on 09/05/2016 at 8:03 CT ANGIO CHEST PULMONARY EMBOLISM IMPRESSION: 1. Minimal to mild bilateral pleural effusions with increased pulmonary vascularity suggestive of edema. 2. Focal nodular opacities within the bases bilaterally as above. These could be credit representative of focal areas of edema or nonspecific nodules. Recommend interval followup as below. 3. No evidence of pulmonary embolism. 4. Mild appearance of septal thickening with enlargement of the right atrium and right ventricle. This can be indicative of right heart strain. Fleischner Society criteria for SOLID lung nodule followup. Nodule size (mm)Low-risk patientHigh-risk patient<6 (single or multiple)No routine followup.Optional CT at 12 months. 6-8 (single or multiple)CT at 6-12 months, then optional CT at 18-24 mo.CT at 6-12 months, then CT at 18-24 months. >8 (single)CT, PET-CT, or biopsy at 3 months. Same as for low-risk pts. >8 (multiple)CT at 3-6 months, then optional CT at 18-24 mo.CT at 3-6 months, then CT at 18-24 months. Recommendations do not apply to lung cancer screening, patients with immunosuppression, or patients with known primary cancer. Dictated by: Anna Ray M.D. on 09/05/2016 at 9:[address] Duran's H and P: "Chon is an 80 yo male with a history of polycythemia , CHF, chronic atrial fibrillation on Eliquis, COPD with pulmonary fibrosis requiring 5L O2 NC at home, controlled type II diabetes, and hypotension who presents to the ED via EMS for complaints of bilateral lower extremity pain, swelling, and shortness of breath 3 days. He reports that at home today, his home health nurse noted that he appeared more short of breath and was saturating in the mid 80s on 5 L nasal cannula. She also reports the patient was complaining of bilateral leg swelling and increasing pain in the last few days. This was reported to his PCP, Dr. Valentine, and then EMS was called and he was sent to the ED for evaluation. He reports that he has chronic shortness of breath and is usually on 5 L of oxygen at home and generally sleeps fairly upright. He also has a chronic cough that is mildly productive and chronic low systolic blood pressure. He has not had any fevers, chills, or CP and has not had any sick contacts. He reports that he recently had an episode of pneumonia and required an indwelling Nguyen catheter after discharge for urinary retention. He reports this was in place for about a month and a half and was finally removed at his request about a week ago. Since removal he has not noted any blood in his urine, dysuria, or discharge. He only complains of frequency but that is due to his diuretics. In the ED he was noted to be in atrial fibrillation with rate of 102. He was afebrile and slightly hypotensive at 107/55. He was also saturating 90% on 5 L NC. His labs showed a white count of 13.1 but no left shift. He also had hemoglobin of 10.7 with an MCV of 74.1 and RDW of 22.8 and a platelet count of 594. A CMP was rather benign except BUN of 30 and a creatinine of 1.1. His proBNP was noted to be 5987 and his troponin was negative 1. His UA showed moderate occult blood with large leukocyte esterase and urine white blood cells greater than fifty, and also moderate urine yeast. He was given 40 mg of IV Lasix in the ED" Hospital Course 80 yo male with a history of polycythemia, CHF, chronic atrial fibrillation on Eliquis, COPD with pulmonary fibrosis requiring 5L O2 NC at home, controlled type II diabetes, and hypotension who presents to the ED via EMS for complaints of bilateral lower extremity pain, swelling, and shortness of breath 3 days. Patient will be admitted for gentle diuresis and evaluation of his bilateral feet pain and swelling and SOB. #Pulmonary fibrosis on home oxygen, POA Continued home Qvar inhaler His breathing returned to baseline #Acute exacerbation of Congestive Heart Failure, POA He did receive 40mg of IV Lasix in the ED, which we continued for a couple more days. We also resumed his home PO Lasix. Continued to monitor I/Os closely and daily weights. Doppler U/S of legs -neg for DVTs. Digoxin level low, will encourage patient to take the full dosage and not half dose. Patient's Echo revealed severe RV and RA dilatation. A CTA was performed after desensitizing the patient to contrast. Results did not show any PE, but there was a large new nodule noted on imaging. Patient refused COLLETTE hoses for his peripheral edema. #Possible CAUTI, POA UA positive for Leuks, WBC, and blood. Patient has not had any dysuria but had urgency and frequency. UA grew Enterococcus. Recent indwelling catheter usage. Levaquin 750mg PO daily x 5 days #Chronic atrial fibrillation, POA Patient is currently on Eliquis, will continue Rate well controlled. Patient has only been taking half of his Eliquis dosing and half of his Digoxin dosing. He reports he can't handle taking that many pills so he does that instead. #NIDDM2, POA Held home Glimepiride, initiated low dose Correctional Scale #Chronic Supine Hypotension, POA Patient reports his baseline systolic is in the 90s. Uncertain of reason, but he reports it runs in his family. Mildly orthostatic from supine to sitting only Continued to be only hypotensive with supine positioning. #Chronic BPH, POA Cautiously continued his home Finasteride and Flomax since they are fairly low doses If worsening Hypotension, consider stopping these medications if patient is able to urinate without difficulties Nursing noted about 115 ml of PVR yesterday. #Polycythemia vera, POA Continued his Agrylin #Pulmonary Nodule Noted on CT, may need follow up with interval imaging. Differ to PCP. Exam Vital Signs (Last) Date Time Temp Pulse Resp B/P Pulse Ox O2 Delivery O2 Flow Rate FiO2 09/06/16 12:33 82 09/06/16 08:43 35.9 18 104/67 95 Room Air 4.00 Exam Gen.: Well-developed elderly male who appears in mild respiratory distress, CV: Irregularly irregular with soft systolic murmur, peripheral pulses intact Respiratory: Coarse breath sounds, mild bibasilar rales, no wheezing or rhonchi noted, mild respiratory distress while on 4 L NC. Abdomen: Soft, nontender, nondistended, mildly obese, normoactive bowel sounds MSK: Muscle strength grossly intact and equal, no joint erythema or swelling. Extremities: 1-2+ bilateral firm pitting edema up to both knees but improving, there are chronic venous stasis changes, decreased DP and PT pulses bilaterally , :No nguyen catheter Neuro: Alert and oriented, slow but normal gait Psych: Appropriate mood and affect Test 09/03/16 11:40 09/03/16 12:34 09/03/16 15:58 09/04/16 06:15 Troponin T 0.010ug/L (0.0-0.011) Pro-B-Type Natriuretic Peptide 5987pg/mL (0-486) Urine Color Straw (YELLOW) Urine Appearance Hazy (CLEAR,HAZY) Urine pH 5.5 (5.0-8.0) Urine Specific [place] 1.020 (1.003-1.035) Urine Protein Tracemg/dL (NEG,TRACE) Urine Glucose (UA) Negativemg/dL (NEGATIVE) Urine Ketones Negativemg/dL (NEGATIVE) Urine Occult Blood Moderate (NEGATIVE) Urine Nitrite Negative (NEGATIVE) Urine Bilirubin Negative (NEGATIVE) Urine Urobilinogen Normalmg/dL (NORMAL) Urine Leukocyte Esterase Large (NEGATIVE) Urine RBC 0-2/hpf (0-2) Urine WBC >50/hpf (0-5) Urine Epithelial Cells Occasional/hpf (NONE-MOD) Urine Crystals None seen (NONE SEEN) Urine Bacteria Moderate/hpf (NONE-FEW) Urine Hyaline Casts Occasional/lpf (NONE) Urine Granular Casts None seen (NONE SEEN) Urine Waxy Casts None seen (NONE SEEN) Urine Red Blood Cell Casts None seen (NONE SEEN) Urine White Blood Cell Casts None seen (NONE SEEN) Urine Mucus None seen (None Seen) Urine Trichomonas None seen (NONE SEEN) Urine Yeast Moderate (NONE SEEN) Urinalysis Comment None Urine Culture Reflexed Indicated Prothrombin Time 15.3sec (8.1-12.5) Prothromb Time International Ratio 1.42ratio Hemoglobin A1c 7.0% (4.8-5.6) Magnesium Level 2.0mg/dL (1.6-2.6) Thyroid Stimulating Hormone (TSH) 2.390uIU/mL (0.450-4.500) Digoxin Level 0.5nG/mL (0.9-2.0) Phosphorus Level 4.0mg/dL (2.5-4.9) Test 09/05/16 06:30 09/06/16 10:10 Activated Partial Thromboplast Time 37.2sec (22.8-33.0) Procalcitonin 0.11ng/mL (0.00-0.08) White Blood Count 17.2th/mm3 (3.8-10.1) Red Blood Count 5.34mil/mm3 (4.40-5.80) Hemoglobin 11.8g/dL (13.8-17.2) Hematocrit 38.5% (41.0-50.0) Mean Corpuscular Volume 72.1fL (81-100) Mean Corpuscular Hemoglobin 22.1pg (27.0-35.0) Mean Corpuscular Hemoglobin Concent 30.6% (32.0-37.0) Red Cell Distribution Width 23.1% (12.3-15.4) Platelet Count 692bil/L (150-400) Neutrophils (%) (Auto) 75.6% (40-74) Lymphocytes (%) (Auto) 12.4% (14-46) Monocytes (%) (Auto) 10.4% (4-12) Eosinophils (%) (Auto) 0.9% (0-5) Basophils (%) (Auto) 0.2% (0-3) Hematology Comments Rbc Sodium Level 135mEq/L (134-144) Potassium Level 4.8mEq/L (3.5-5.2) Chloride Level 100mEq/L (97-108) Carbon Dioxide Level 20mmol/L (18-29) Blood Urea Nitrogen 43mg/dL (8-27) Creatinine 1.49mg/dL (0.76-1.27) Estimat Glomerular Filtration Rate 48mL/min (>59) Glucose Level 169mg/dL (60-99) Calcium Level 9.2mg/dL (8.5-10.1) Total Bilirubin 1.7mg/dL (0.0-1.2) Aspartate Amino Transf (AST/SGOT) 27U/L (0-50) Alanine Aminotransferase (ALT/SGPT) 18U/L (0-44) Alkaline Phosphatase 82U/L (25-160) Total Protein 7.4g/dL (6.4-8.4) Albumin 3.8g/dL (3.4-5.0) Prealbumin 20mg/dL (20-40) Discharge Medications Discharge Medications Anagrelide (Anagrelide) 0.5 Mg Capsule 0.5 MG PO DAILY (Reported) Apixaban (Eliquis) 5 Mg Tablet 5 MG PO BID Prescribed by: AMRIT CASTILLO DO Dexlansoprazole ER (Dexilant) 60 Mg Capsule 60 MG PO QAM (Reported) Digoxin (Digitek) 125 Mcg Tablet 62.5 MCG PO DAILY (Reported) Finasteride (Finasteride) 5 Mg Tablet 5 MG PO DAILY (Reported) Furosemide (Furosemide) 20 Mg Tab 20 MG PO BIDBL (Reported) Glimepiride (Glimepiride) 4 Mg Tablet 4 MG PO BID (Reported) Levofloxacin (Levaquin) 750 Mg Tablet 750 MG PO DAILYAC Prescribed by: AMRIT CASTILLO DO Metoprolol Succinate ER (Toprol XL) 25 Mg Tablet 12.5 MG PO DAILY (Reported) Tamsulosin ER (Tamsulosin ER) 0.4 Mg Cap.er.24h 0.4 MG PO HS (Reported) As needed Aspirin (Aspirin) 81 Mg Tablet 81 MG PO TID PRN PRN For Pain (Reported) Beclomethasone Dipropionate (Qnasl) 8.7 Gm Hfa.aer.ad 2 SPR NASAL DAILY PRN PRN allergies (Reported) Additional med instructions Please take your Elquis twice daily. You were also started on antibiotic called Levaquin while in the hospital for a urinary tract infection. Please continue to take it as instructed and finish all the pills. Followup Plan Follow-up plan Please have a CBC and a BMP done before you see your PCP. Please get seen Friday. Your creatinine was a bit elevated. This is likely to the stronger IV Lasix we used in the hospital. You can go back your pill Lasix which is half the strength of the IV medication we use in the hospital. Your white count was also elevated this is probably due to the steroids that you received before your CAT scan. We however need to check again to make sure that these numbers normalize in the next few days. Discharge Diet: Heart Healthy Discharge Activity: Limited until seen by PCP, Home Health Phyical Therapy Patient Instructions Please follow up with your PCP as early as possible next week. Please continue to take your Lasix as prescribed. Please finish all your antibiotic pills as prescribed. Follow-up Provider: Wenceslao Valentine MD Follow-up with PCP in: 1 week Attending Statement The patient was seen and examined together with Dr. Castillo on 09/06 and I agree with the history, exam and plan as outlined in the note above. Amrit Castillo DO Sep 07, 2016 12:48 Aung Matamoros MD Sep 08, 2016 15:15
== END 2016-09-06 12:50 | disposition home health service (06) | DRG 292 ==
LOC: EDBD 10:05 → EDUNIT# 10:05 → SED 10:05 → MPC 14:00
PROVIDERS: ADMIT Internal Medicine; ATTEND Internal Medicine
DX: I50.40 Unspecified combined systolic (congestive) and diastolic (congestive) heart failure (principal); N39.0 Urinary tract infection, site not specified; T83.511A Infection and inflammatory reaction due to indwelling urethral catheter, initial encounter; Z79.82 Long term (current) use of aspirin; Z99.81 Dependence on supplemental oxygen; Z95.5 Presence of coronary angioplasty implant and graft; Z87.891 Personal history of nicotine dependence; J84.10 Pulmonary fibrosis, unspecified; Z79.01 Long term (current) use of anticoagulants; I48.2 Chronic atrial fibrillation; E11.9 Type 2 diabetes mellitus without complications; N40.0 Benign prostatic hyperplasia without lower urinary tract symptoms; D45 Polycythemia vera; B95.2 Enterococcus as the cause of diseases classified elsewhere; Z79.84 Long term (current) use of oral hypoglycemic drugs; I95.1 Orthostatic hypotension; R91.1 Solitary pulmonary nodule

== ENCOUNTER 2017-01-21 13:56 | Emergency (ER) | payer MEDICARE, OTHER ==
[~2017-01-21] VITALS: Ht 175.3 cm; Wt 75.0 kg
[2017-01-21] VITALS (10 sets, daily range): BP systolic 93–154; BP diastolic 67–105; PULSE 100–143; RESP 13–23; O2SAT 87–94
[~2017-01-21 13:56] MED LIST changes: +ANAG0.5C2 PO; +ASPI-973 PO; -ASPI81TA40 PO; +BECL8.7H NASAL; -DEXL60CA3 PO; +DEXL60CA5 PO; -GLIM4TAB PO; +GLIM4TAB2 PO; -HYDR500C2 PO; +LEVO750T9 PO; -MULT1CAP33 PO; -TAM4 PO; +TAMS0.4C29 PO; -[UNRECOGNIZED DRUG - SUPPLY]
--- NOTE | 2017-01-21 14:06 | ED.REPORT ---
HPI-Dyspnea / Wheezing Date of Service Jan 21, 2017 ED Provider: Reyes Casanova DO Patient is an 81 year old male with a hx of CHF, A-fib on Eloquis, HTN, COPD on 5 L home O2, and DM who presents to the ED via EMS complaining of nausea and vomiting onset this afternoon onset 3 days ago. Associated symptoms include chills, diarrhea, and abdominal pain. When medics arrived, they noted the patient was in Afib with a rate in the 170's. He denies fever, chest pain, or any other symptoms. Nursing Notes Stated Complaint: SOB,RAPID HEART RATE Nursing Notes Reviewed: Yes Allergies: Coded Allergies: latex (Verified Allergy, Intermediate, 09/03/16) Barbiturates (Verified Allergy, Mild, 09/03/16) Sulfa (Sulfonamide Antibiotics) (Verified Allergy, Mild, 09/03/16) amiodarone (Verified Allergy, Unknown, 01/21/17) amoxicillin (Verified Allergy, Unknown, 01/21/17) iodine (Verified Allergy, Unknown, 01/21/17) Scheduled Anagrelide (Anagrelide) 0.5 Mg Capsule 0.5 MG PO DAILY Apixaban (Eliquis) 5 Mg Tablet 5 MG PO BID Dexlansoprazole ER (Dexilant) 60 Mg Capsule 60 MG PO QAM Digoxin (Digitek) 125 Mcg Tablet 62.5 MCG PO DAILY Finasteride (Finasteride) 5 Mg Tablet 5 MG PO DAILY Furosemide (Furosemide) 20 Mg Tab 20 MG PO BIDBL Glimepiride (Glimepiride) 4 Mg Tablet 4 MG PO BID Levofloxacin (Levaquin) 750 Mg Tablet 750 MG PO DAILYAC Metoprolol Succinate ER (Toprol XL) 25 Mg Tablet 12.5 MG PO DAILY Tamsulosin ER (Tamsulosin ER) 0.4 Mg Cap.er.24h 0.4 MG PO HS Scheduled PRN Aspirin (Aspirin) 81 Mg Tablet 81 MG PO TID PRN PRN For Pain Beclomethasone Dipropionate (Qnasl) 8.7 Gm Hfa.aer.ad 2 SPR NASAL DAILY PRN PRN allergies General Time Seen by MD: 13:58 Chief Complaint Other (vomiting ) Hx Obtained From: Patient, EMS Arrived By: Ambulance Sudden in Onset?: Yes Onset Occurred: 3 days ago Symptom Duration: Since onset Past Medical History Past Medical History Thrombocytopenia Reports: COPD, Cancer, Congestive heart failure, Diabetes mellitus, Hypertension Reports: Atrial fibrillation, Depression, GI bleed Past Surgical History Hernia repair Reports: Cataract surgery Smoking History Former Smoker Social History Alcohol Use: "Social" Other Social History: Good social support Review of Systems Constitutional: Reports: Chills, Denies: Fever Cardiovascular: Denies: Chest pain Complete sys rev & neg: except as marked. GI: Reports: Abdominal pain, Diarrhea, Nausea, Vomiting Physical Exam Initial Vital Signs Vital Signs (First) Date Time Temp Pulse Resp B/P Pulse Ox O2 Delivery O2 Flow Rate FiO2 01/21/17 14:00 111 19 108/67 92 Venturi Mask 01/21/17 14:09 36.9 Initial VS: Reviewed, Vital signs abnormal Head / Eyes: Atraumatic, Normocephalic Abdomen / GI: Soft, Non-tender Skin: Warm, Dry Neurologic: Alert, Oriented, Nonfocal Psychiatric: Mood/affect normal, Behavior normal, Normal thought content General/Constitutional: Awake, Alert, No acute distress Neck: Supple, Full range of motion Neck Vascular: Positive: JVD severe Respiratory / Chest: Breath sounds NL, Breath sounds = bilat, No respiratory distress Heart Rate / Rhythm: Positive: Tachycardia Interpretation & Diagnostics Lab Results Interpretation Result Diagram: 01/21/17 1400 01/21/17 1400 Test 01/21/17 14:00 White Blood Count 19.8th/mm3 (3.8-10.1) Red Blood Count 5.54mil/mm3 (4.40-5.80) Hemoglobin 11.0g/dL (13.8-17.2) Hematocrit 37.3% (41.0-50.0) Mean Corpuscular Volume 67.3fL (81-100) Mean Corpuscular Hemoglobin 19.9pg (27.0-35.0) Mean Corpuscular Hemoglobin Concent 29.5% (32.0-37.0) Red Cell Distribution Width 24.5% (12.3-15.4) Platelet Count 1252bil/L (150-400) Neutrophils (%) (Auto) 77.9% (40-74) Lymphocytes (%) (Auto) 9.6% (14-46) Monocytes (%) (Auto) 10.7% (4-12) Eosinophils (%) (Auto) 0.4% (0-5) Basophils (%) (Auto) 0.7% (0-3) Hold Purple Top Tube Received (Received) Prothrombin Time 20.1sec (8.1-12.5) Prothromb Time International Ratio 1.85ratio Hold Blue Top Tube Received (Received) Sodium Level 133mEq/L (134-144) Potassium Level 5.2mEq/L (3.5-5.2) Chloride Level 95mEq/L (97-108) Carbon Dioxide Level 18mmol/L (18-29) Blood Urea Nitrogen 47mg/dL (8-27) Creatinine 1.61mg/dL (0.76-1.27) Estimat Glomerular Filtration Rate 44mL/min (>59) Glucose Level 123mg/dL (60-99) Calcium Level 9.9mg/dL (8.5-10.1) Magnesium Level 2.4mg/dL (1.6-2.6) Total Bilirubin 3.3mg/dL (0.0-1.2) Aspartate Amino Transf (AST/SGOT) 54U/L (0-50) Alanine Aminotransferase (ALT/SGPT) 31U/L (0-44) Alkaline Phosphatase 102U/L (25-160) Troponin T 0.012ug/L (0.0-0.011) Pro-B-Type Natriuretic Peptide 7394pg/mL (0-486) Total Protein 7.9g/dL (6.4-8.4) Albumin 3.5g/dL (3.4-5.0) Hold [place]ayer Top Tube Received (Received) ECG Interpretation ECG Interpretation: Afib with RVR rate of [address] changes Time: 14:03 Interpreted by: ED physician X-Ray Chest Interpretation Chest Xray Interpretation: IMPRESSION: Increased retrocardiac consolidation suggesting pneumonia, versus aspiration/atelectasis. Patchy right lower lobe opacities probably aspiration or atelectasis. Dictated by: Ezekiel Williamson M.D. on 01/21/2017 at 14:58 Approved by: Ezekiel Williamson M.D. on 01/21/2017 at 14:59 View: Portable, 1 view Interpretation / Wet Read by: Interpret - Radiologist Re-Eval/Medical Decision Med Decision/Clinical Course Initially critical presentation suggests CHF exacerbation with decompensation. IV metoprolol and IV Lasix are given. Patient has leukocytosis and suspected pneumonia on x-ray, blood cultures, Rocephin, azithromycin given. The patient's blood pressure was borderline after IV metoprolol and Lasix, approximately 100 mL of normal saline was given in the ER and then held after discussion with the accepting doctor from [place]. Patient will ultimately be transferred to [place] due to Consultation : Call Returned at: 15:50 Note: Ke Cheema, at [facility], accepts transfer Discharge & Departure Impression: Primary Impression: Atrial fibrillation with RVR Additional Impression: CHF exacerbation Disposition: Transfer, Acute Care Facility Receiving Hospital: [facility] Transfer Accepted: Yes Transfer Accepted at: 15:50 Spoke with: Attending physician Patient Status: Stable Patient Informed: Yes Referrals: Wenceslao Valentine MD (PCP) Crit Care Except Billable Proc Time Spent: 30-74 minutes Services Performed: Patient management by me, Time spent at bedside, Reviewing test results Critical Care Notes: See MDM Scribe Attestation Portions of this note were transcribed by Jacqui Reddy. I, Dr. Casanova personally performed the history, physical exam and medical decision-making; I reviewed and confirmed the accuracy of the information in the transcribed note. Signed by: Aleksey Fairchild, 01/21/17 copies to: Wenceslao Valentine MD, Timothy S DO Jan 21, 2017 14:06 JACQUI REDDY Jan 21, 2017 14:24
[2017-01-21] MEDS ORDERED: Furosemide 10 mg/mL 4 mL Inj IVPUSH ONE (14:25)
[2017-01-21] MEDS ORDERED: Ondansetron 2 mg/mL 2 mL Inj IVPUSH ONE (14:25)
[2017-01-21 14:36] LABS: BASOPHILS % (AUTO) 0.7 % (0-3); EOSINOPHILS % (AUTO) 0.4 % (0-5); INR 1.85 ratio; MONOCYTES % (AUTO) 10.7 % (4-12); Mean Corpuscular Hemoglobin 19.9 pg (27.0-35.0); Mean Corpuscular Volume 67.3 fL (81-100); NEUTROPHILS % (AUTO) 77.9 % (40-74)
[2017-01-21 14:43] LABS: TROPONIN T 0.012 ug/L (0.0-0.011)
[2017-01-21] MEDS ORDERED: MeTOProlol 1 mg/mL 5 mL Inj IVPUSH SCH (14:50)
[2017-01-21 14:54] LABS: Magnesium 2.4 mg/dL (1.6-2.6)
[2017-01-21 14:55] LABS: Platelet Count 1252 bil/L (150-400)
[2017-01-21] MEDS ORDERED: Furosemide 10 mg/mL 2 mL Inj IVPUSH ONE (15:00)
--- NOTE | 2017-01-21 15:01 | DRSVH ---
PROCEDURE: X-RAY CHEST ONE VIEW, PORTABLE ([id number]) INDICATIONS: hypoxia TECHNIQUE: One view of the chest was acquired. COMPARISON: [facility], CR, XR CHEST 2VW, 09/10/2016, 15:41. FINDINGS: Surgical changes and devices: None. Lungs and pleura: There is retrocardiac consolidation, and patchy opacities in the right lung base. Mediastinum: Mediastinal contours appear normal. Heart size is normal. Bones and chest wall: No suspicious bony lesions. Overlying soft tissues appear unremarkable. IMPRESSION: Increased retrocardiac consolidation suggesting pneumonia, versus aspiration/atelectasis. Patchy right lower lobe opacities probably aspiration or atelectasis. Dictated by: Ezekiel Williamson M.D. on 01/21/2017 at 14:58 Approved by: Ezekiel Williamson M.D. on 01/21/2017 at 14:59
[2017-01-21] MEDS ORDERED: cefTRIAXone Inj 2,000 MG in Dextrose 5% Minibag Plus 50 ML IV ONE (15:30)
[2017-01-21] MEDS ORDERED: Azithromycin Inj 500 MG in Dextrose 5% w/Vial Mate 250 ML IV ONE (15:30)
[2017-01-21] MEDS ORDERED: 0.9% Sodium Chloride 250 ML IV ONE (15:40)
[2017-01-21] MEDS ORDERED: 0.9% Sodium Chloride 1,000 ML IV SCH (15:40)
== END 2017-01-21 16:44 | disposition short-term general hospital (02) ==
LOC: SED 13:56
DX: I48.91 Unspecified atrial fibrillation (principal); I50.9 Heart failure, unspecified; J44.9 Chronic obstructive pulmonary disease, unspecified; E11.9 Type 2 diabetes mellitus without complications; I11.0 Hypertensive heart disease with heart failure; F32.9 Major depressive disorder, single episode, unspecified; Z87.891 Personal history of nicotine dependence; Z91.040 Latex allergy status; Z88.8 Allergy status to other drugs, medicaments and biological substances; Z88.2 Allergy status to sulfonamides; Z88.1 Allergy status to other antibiotic agents
CPT/HCPCS: 36415; 71010; 80053; 83605; 83735; 83880; 84484; 85025; 85610; 87040; 93005; 96374; 96375; 99291; J1940; J2405